=== PATIENT | male | born 1965 | race Caucasian/White ===

== ENCOUNTER → 2019-09-11 | Day surgery (SDC) | payer OTHER ==
[~2019-09-11] MED LIST: IV RINGERS SOLUTION,LACTATED 1,000 ML IV SCH; LIDOCAINE 1% Multi-Dose 20 ML VIAL. ONE; ONDANSETRON PF 4 MG/2 ML VIAL. IV PRN; PROPOFOL 10,000 MCG/ML (20ML) VIAL IV ONE; PROPOFOL 20 ML IV ONE
[2019-09-11 14:53] VITALS: BP 119/79
--- NOTE | 2019-09-13 15:07 | PATHOLOGY ---
[facility] Accession Number: [id number] . 01 Material submitted: . PART A: esophagus - DISTAL ESOPHAGUS BIOPSY. Modifiers: distal PART B: esophagus - PROXIMAL ESOPHAGUS BIOPSY. Modifiers: proximal . 01 Clinical history: . Dysphagia . 02 Diagnosis: A. Esophageal biopsies, distal esophagus: - Esophagitis with eosinophils. See comment. . B. Esophageal biopsies, proximal esophagus: - Segments of mildly hyperplastic squamous esophageal mucosa identified. . (JPM:duran; 09/13/2019) [facility] [place] 09/13/2019 0932 Local . 02 Comment: Sections of the distal esophageal biopsy reveal segments of hyperplastic squamous esophageal mucosa with focal contiguous gastric mucosa showing moderate chronic inflammation. The squamous esophageal mucosa shows focal increased intraepithelial eosinophils. Focally, there are approximately 15-20 intraepithelial eosinophils per high power field. The differential diagnosis of esophagitis with eosinophils includes reflux esophagitis, "pill esophagitis", and eosinophilic esophagitis. Please correlate clinically. . Sections of the proximal esophageal biopsy reveal segments of mildly hyperplastic squamous esophageal mucosa. There is no increase of intraepithelial eosinophils. . (JPM:duran; 09/13/2019) . 02 Electronically signed: . Kyle Westfall MD, Pathologist NPI- [id number] . 01 Gross description: . A. Received in formalin labeled "Steed, Che[place], distal esophagus BX," are 2 segments of bear soft tissue measuring 0.8 x 0.1 x 0.1 cm in aggregate dimensions and ranging from 0.2 to 0.6 cm in maximum dimension. The specimen is submitted entirely in cassette A1. . B. Received in formalin labeled "Steed, Cheko, proximal esophagus BX," are 2 segments of bear soft tissue measuring 0.4 x 0.2 x 0.1 cm in aggregate dimensions and measuring 0.2 cm each in maximum dimension. The specimen is submitted entirely in cassette B1. (TSD; 09/12/2019) TOB/TOB 09/12/2019 2259 Local . 02 Pathologist provided ICD-10: K20.9 . 02 CPT . 189759, [id number] Specimen Comment: A courtesy copy of this report has been sent to [phone] Specimen Comment: [id number] Specimen Comment: Report sent to / DR HANNA Specimen Comment: A duplicate report has been generated due to demographic updates. Performed at: 01 [facility] [place] [address] [id number] MD Rashard Lua MD Phone: [phone] Performed at: 02 [facility] [address] [place], [place] [id number] MD Kyle Westfall MD Phone: [phone]
== END ==
LOC: SURG 13:35
PROVIDERS: ATTEND Internal Medicine Gastroenterology
DX: K20.0 Eosinophilic esophagitis (principal); E66.3 Overweight; Z68.27 Body mass index [BMI] 27.0-27.9, adult; Z86.718 Personal history of other venous thrombosis and embolism; Z98.890 Other specified postprocedural states
CPT/HCPCS: 43239; 43450; J2704; J3010; J7120

== ENCOUNTER → 2020-06-02 | Outpatient (CLI) | payer OTHER ==
[2019-09-11 14:53] VITALS: BP 119/79
--- NOTE | 2020-06-02 17:41 | RAD ---
INDICATION: Reason: S/P ARTHROSCOPY OF RIGHT SHOULDER / Spl. Instructions: / History: COMPARISON: None. IMPRESSION: Right shoulder: Single view obtained. Postoperative changes to the right shoulder with anchor seen at the coracoid and clavicle postoperatively. There is also post resection or resorption changes at the right distal clavicle with a small ossific fragment in the region. Coracoclavicular distances approximately 13 mm. Electronically signed by: Kevin Farmer MD (06/02/2020 5:38 PM) [id number]
== END | disposition home or self-care (01) ==
LOC: DXRAD 15:59
PROVIDERS: ATTEND Physician Assistant
DX: S43.431A Superior glenoid labrum lesion of right shoulder, initial encounter (principal); X58.XXXA Exposure to other specified factors, initial encounter; Y93.89 Activity, other specified; Y92.89 Other specified places as the place of occurrence of the external cause; Y99.8 Other external cause status; Z98.890 Other specified postprocedural states
CPT/HCPCS: 73020